=== PATIENT | male | born 1950 | race Caucasian/White ===

== ENCOUNTER 2018-05-07 20:12 | Emergency (ER) | payer OTHER ==
[2018-05-07 20:28] VITALS: BP 124/85
[2018-05-07] MEDS ORDERED: Sulfamethox/Trimethoprim DS 800/160* TAB PO ONE (20:59)
--- NOTE | 2018-05-07 21:02 | UC ---
Lower Extremity/Ankle HPI - HPI Summary HPI Summary: Pt reports a severe pain in his right great toe, recentl travel to [facility], denies trauma, prior injury, no previous episodes no history of gout. + tenderness to palpation with redness, swelling extending up to midfoot. traveling to [place] in AM. - History of Current Complaint Chief Complaint: UCLowerExtremity Stated Complaint: FOOT INJURY Time Seen by Provider: 05/07/18 20:42 Hx Obtained From: Patient Onset/Duration: Sudden Onset, Lasting Days Severity Initially: Moderate Severity Currently: Severe Pain Intensity: 8 Pain Scale Used: 0-10 Numeric Aggravating Factor(s): Standing, Ambulation Alleviating Factor(s): Rest, Ice Able to Bear Weight: Yes - Allergies/Home Medications Allergies/Adverse Reactions: Allergies Allergy/AdvReac Type Severity Reaction Status Date / Time No Known Allergies Allergy Verified 11/09/14 09:48 Home Medications: Home Medications Zolpidem TAB* [Ambien*] 5 mg PO BEDTIME PRN 05/07/18 [History Confirmed 05/07/18 ] PMH/Surg Hx/FS Hx/Imm Hx Previously Healthy: Yes - Surgical History Surgical History: Yes Surgery Procedure, Year, and Place: WISDOM TEETH , [facility] BASAL CELL NOSE - Social History Alcohol Use: Daily Alcohol Amount: one drink per day Substance Use Type: None Smoking Status (MU): Former Smoker Have You Smoked in the Last Year: No Review of Systems Skin: Other - redness Musculoskeletal: Arthralgia, Edema, Myalgia Is Patient Immunocompromised?: No All Other Systems Reviewed And Are Negative: Yes Physical Exam Triage Information Reviewed: Yes Appearance: Well-Appearing, No Pain Distress, Well-Nourished Vital Signs: Initial Vital Signs Temp 98.0 F 05/07/18 20:22 Pulse 91 05/07/18 20:22 Resp 16 05/07/18 20:22 BP 124/85 05/07/18 20:22 Pulse Ox 97 05/07/18 20:22 Musculoskeletal: Positive: ROM Intact - ankle, toes, PROM and AROM, Edema @, Other: - TTP over PIP joint great toe, none over MCP joint, erythema extending from mid great toe to midfoot, + warm, TTP over arythema. no lymphangitic spearing, no open wounds, sores. Neurological Exam: Normal Neurological: Positive: Other: - SITLT below ankle L foot Psychological Exam: Normal Lower Extremity Course/Dx - Course Course Of Treatment: cellulitis, abx given, continue to monitor, follow up at ER if worsens, pain increases. RICE - Differential Dx/Diagnosis Differential Diagnosis/HQI/PQRI: Cellulitis Provider Diagnoses: cellulitis L foot Discharge - Sign-Out/Discharge Documenting (check all that apply): Patient Departure All imaging exams completed and their final reports reviewed: No Studies - Discharge Plan Condition: Good Disposition: HOME Prescriptions: Sulfamethox/Trimethoprim DS* [Bactrim DS 800/160 TAB*] 1 tab PO BID #19 tab Patient Education Materials: Cellulitis (ED), R.I.C.E. Treatment (ED) Referrals: Shay Power MD [Primary Care Provider] - Additional Instructions: - elevate, ice, rest - Hard soled shoes - motrin/ advil for pain, swelling - Antibiotics, twice daily x 10 days - return to urgent care/ ER with increased pain, swelling, fevers - Billing Disposition and Condition Condition: GOOD Disposition: Home
--- NOTE | 2018-05-08 08:25 | UC ---
- Progress Note Progress Note: NO IMAGING Discharge - Sign-Out/Discharge Documenting (check all that apply): Post-Discharge Follow Up All imaging exams completed and their final reports reviewed: No Studies - Discharge Plan Condition: Good Disposition: HOME Prescriptions: Sulfamethox/Trimethoprim DS* [Bactrim DS 800/160 TAB*] 1 tab PO BID #19 tab Patient Education Materials: Cellulitis (ED), R.I.C.E. Treatment (ED) Referrals: Shay Power MD [Primary Care Provider] - Additional Instructions: - elevate, ice, rest - Hard soled shoes - motrin/ advil for pain, swelling - Antibiotics, twice daily x 10 days - return to urgent care/ ER with increased pain, swelling, fevers - Billing Disposition and Condition Condition: GOOD Disposition: Home
== END 2018-05-07 21:28 | disposition home or self-care (01) ==
LOC: UCEAST 20:12
DX: L03.116 Cellulitis of left lower limb (principal); Z87.891 Personal history of nicotine dependence
CPT/HCPCS: 99212; A9270-GY; G0463